=== PATIENT | male | born 1980 | race Caucasian/White ===

== ENCOUNTER 2018-11-29 06:40 | Emergency (ER) | payer SELFPAY ==
[~2018-11-29] VITALS: Ht 170.2 cm; Wt 91.6 kg
[2018-11-29 06:57] VITALS: Ht 170.2 cm; Wt 91.6 kg
[2018-11-29] MEDS ORDERED: ALBUTEROL 0.5% (NEB) 2.5 MG/0.5 ML AMP INH STA (07:16)
[2018-11-29] MEDS ORDERED: IPRATROPIUM (NEB) 0.5 MG/2.5 ML AMP INH STA (07:16)
[2018-11-29] MEDS ORDERED: ASPIRIN 325 MG TAB PO STA (07:16)
[2018-11-29] MEDS ORDERED: NITROGLYCERIN (SL) 0.4 MG TAB SL PRN (07:30)
--- NOTE | 2018-11-29 10:25 | ERD ---
ER Documentation Chief Complaint Chief Complaint CHEST PAIN AND DIZZINESS SINCE YESTERDAY. HX CHF HPI This is a 38-year-old male with a known history of congestive heart failure. The patient indicates he is been compliant with all of his medications. The patient states that for the past 24 hours he has been having intermittent pa lpitations and chest pain. He denies any chest pressure that radiates to the neck arm back or jaw. He states it is a sharp shooting pain. Does not radiate to the back. He also indicates that he started to develop dizziness where he feels as though the room is spinning around him. He feels nauseous but has not experienced any emesis. He has no changes in vision. He denies any tinnitus. He denies any swelling of his lower extremities. He does take Lasix and has been compliant as stated above with all of his medications. He does not smoke tobacco. He has no history of coronary artery disease in his first-degree relatives less than 50 years of age. ROS All systems reviewed and are negative except as per history of present illness. Allergies Allergies: Coded Allergies: No Known Allergy (Unverified , 11/29/18) PMhx/Soc History of Surgery: No Anesthesia Reaction: No Hx Neurological Disorder: No Hx Respiratory Disorders: No Hx Cardiac Disorders: Yes (chf) Hx Psychiatric Problems: No Hx Miscellaneous Medical Probl: No Hx Alcohol Use: Yes (occasionally) Hx Substance Use: No Hx Tobacco Use: No Smoking Status: Never smoker Physical Exam Vitals Vital Signs Date Temp Pulse Resp B/P (MAP) Pulse Ox O2 O2 Flow FiO2 Time Delivery Rate 11/29/18 72 20 127/80 97 10:11 (96) 11/29/18 78 21 135/86 100 09:00 (102) 11/29/18 72 17 134/93 100 08:30 (107) 11/29/18 75 21 137/91 99 Room Air 08:00 (106) 11/29/18 77 16 99 21 07:28 11/29/18 98.0 80 16 142/92 99 Room Air 07:22 (109) 11/29/18 98.0 81 22 158/84 96 06:57 (108) Physical Exam Constitutional:Well-developed. Well-nourished. HEENT:Normocephalic. Atraumatic.Pupils were equal round reactive to light. Moist mucous membranes.No tonsillar exudates. Neck: No nuchal rigidity. No lymphadenopathy. No posterior cervical spine tenderness or step-offs. Respiratory: Not using accessory muscles of respiration.Lungs were clear to auscultation bilaterally. No rhonchi. No rales. No wheezing. Reproducible left chest wall tenderness with no crepitus no ecchymosis no flail chest. Cardiovascular: Regular rate regular rhythm.No murmurs. No rubs were appreciated.S1, S2 normal. Distal pulses are palpable 2+ bilaterally. GI: Abdomen was soft. Nontender. Non Distended. No pulsatile abdominal masses or bruits. No rebound. No guarding. Bowel sounds were present and normal. Muscle skeletal: Full range of motion of both the upper and lower extremities bilaterally.Normal muscle tone.No assymetrical calf tenderness or swelling. Skin: No petechia, no purpura. No lesions on the palms or the soles of the feet. No maculopapular rash. NEURO: Patient was alert, awake, orientated x3.No facial droop. Gait observed and normal with no ataxia.Speech had regular rate and rhythm. No focal neurological deficits. Peripheral fatigable nystagmus Result Diagram: 11/29/18 0715 11/29/18 0715 Results 24 hrs Laboratory Tests Test 11/29/18 07:15 White Blood Count 8.2 10^3/ul Red Blood Count 5.26 10^6/ul Hemoglobin 15.9 g/dl Hematocrit 45.2 % Mean Corpuscular Volume 85.9 fl Mean Corpuscular Hemoglobin 30.2 pg Mean Corpuscular Hemoglobin Concent 35.2 g/dl Red Cell Distribution Width 12.3 % Platelet Count 185 10^3/UL Mean Platelet Volume 9.9 fl Immature Granulocytes % 0.700 % Neutrophils % 72.6 % Lymphocytes % 14.5 % Monocytes % 10.4 % Eosinophils % 1.2 % Basophils % 0.6 % Nucleated Red Blood Cells % 0.0 /100WBC Immature Granulocytes # 0.060 10^3/ul Neutrophils # 6.0 10^3/ul Lymphocytes # 1.2 10^3/ul Monocytes # 0.9 10^3/ul Eosinophils # 0.1 10^3/ul Basophils # 0.1 10^3/ul Nucleated Red Blood Cells # 0.0 10^3/ul Prothrombin Time 12.3 Sec Prothrombin Time Ratio 1.0 INR International Normalized Ratio 0.90 Activated Partial Thromboplast Time 32.4 Sec Sodium Level 141 mmol/L Potassium Level 3.9 mmol/L Chloride Level 106 mmol/L Carbon Dioxide Level 25 mmol/L Anion Gap 10 Blood Urea Nitrogen 12 mg/dl Creatinine 0.75 mg/dl Est Glomerular Filtrat Rate mL/min > 60 mL/min Glucose Level 130 mg/dl Calcium Level 9.5 mg/dl Total Bilirubin 1.1 mg/dl Direct Bilirubin 0.00 mg/dl Indirect Bilirubin 1.1 mg/dl Aspartate Amino Transf (AST/SGOT) 31 IU/L Alanine Aminotransferase (ALT/SGPT) 36 IU/L Alkaline Phosphatase 110 IU/L Creatine Kinase 146 IU/L Creatine Kinase Index 0.7 Creatinine Kinase MB (Mass) 1.07 ng/ml Troponin I < 0.012 ng/ml B-Type Natriuretic Peptide 200 PG/ML Total Protein 8.4 g/dl Albumin 4.5 g/dl Globulin 3.90 g/dl Albumin/Globulin Ratio 1.15 Current Medications Medications Dose Sig/Elaina Start Time Status Last (Trade) Ordered Route PRN Stop Time Admin Dose Reason Admin Aspirin 325 mg ONCE STAT 11/29/18 DC 11/29/18 (Aspirin) PO 07:16 11/29/18 07:34 07:20 1 tab Q5M UP TO 3 11/29/18 11/29/18 Nitroglycerin DOSES PRN 07:30 07:34 SL .CHEST (Nitroglyceri PAIN n (Sl Tab) 0.4 Mg) Albuterol 5 mg ONCE STAT 11/29/18 DC 11/29/18 (Proventil INH 07:16 11/29/18 08:26 0.5% (Neb)) 07:20 Ipratropium 1 mg ONCE STAT 11/29/18 DC 11/29/18 [place] INH 07:16 11/29/18 08:26 (Atrovent 07:20 0.02% (Neb)) Procedures/MDM The patient presented to the emergency department complaining of chest pain. My clinical evaluation and workup was to distinguish minor causes of chest pain from acute life threatening cardiopulmonary causes such as myocardial i nfarction, pulmonary embolism, aortic dissection, esophageal rupture, cardiac tamponade, The patient was placed on a cardiac technologist, continuous pulse oximetry and IV access established by nursing staff. The patient received aspirin and nitroglycerin. He stated this did not help his symptoms of reproducible chest wall tenderness. This time he was given IV Toradol. The patients chest pain was reproduced by palpation and horizontal flexion of the arms. It was my clinical impression that the pain was a result of inflammation of the skin and subcutaneous structures of the chest wall versus m yocardial ischemia. I felt the patient had low-risk chest pain and could therefore be safely discharged with close follow-up. 12 Lead EKG tracing ordered and reviewed by myself showed: Normal sinus rhythm of 80 bpm and no arrhythmia. [place] interval normal. QRS duration normal. No ST segment elevation. T wave inversion in the lateral leads V5 V6. No ST segment depression. No changes consistent with acute ischemia. Continue 1 view chest radiograph which showed no infiltrates pneumothorax or ple ural effusions. There is cardiomegaly. No pulmonary vascular congestion. The patient had no risk factors for pulmonary embolism. The patient's cardiac troponin was normal. His chest pain have been present for over 24 hours and as stated above I felt this is more pleuritic versus a result of myocardial ischemia. The patient also had vertiginous symptoms which appear to be peripheral vertigo improved with Antivert. The patient was discharged home in fair condition. They were instructed to return to the emergency department at any time if there was any worsening of their condition. The patient stated they would follow up with their PCP in the next 24-48 hours to initiate a suitable medication regimen under the care of their PCP as well as to allow their PCP to monitor any drug reactions. The patient was discharged home with prescriptions after they gave informed consent to the new medication. They were also fully informed by myself on the adverse effects and adverse drug interactions in order to provide adequate safeguards to prevent possible adverse reactions to medications. Departure Diagnosis: Primary Impression: Vertigo Additional Impression: Costochondritis, acute Condition: Fair CHRISTEL STARKS MD Nov 29, 2018 10:25
[2018-11-29] MEDS ORDERED: ASPI-817 PO (10:27)
[2018-11-29] MEDS ORDERED: DIGO125T PO (10:28)
[2018-11-29] MEDS ORDERED: MECLIZINE 12.5 MG TAB PO ONE (10:30)
[2018-11-29] MEDS ORDERED: CARV6.2579 PO (10:35)
[2018-11-29] MEDS ORDERED: FURO20TA3 PO (10:36)
[2018-11-29] MEDS ORDERED: ATOR20TA38 PO (10:36)
[2018-11-29] MEDS ORDERED: MECL-77 PO (12:01)
[2018-11-29 12:04] VITALS: BP 139/90; PULSE 79; RESP 20
== END 2018-11-29 12:06 | disposition home or self-care (01) ==
LOC: E/R 06:40
DX: R42 Dizziness and giddiness (principal); I50.9 Heart failure, unspecified; M94.0 Chondrocostal junction syndrome [Tietze]; R05 Cough
CPT/HCPCS: 71045; 80053; 82550; 82553; 83880; 84484; 85025; 85610; 85730; 93005; 94644